=== PATIENT | female | born 1965 | race Caucasian/White ===

== ENCOUNTER 2020-06-11 05:54 | Inpatient (IN) ==
--- NOTE | 2020-05-23 15:33 | PAT Medication Instructions ---
Medication Instructions Date of Service May 23, 2020 Home Medications clonidine HCl 0.3 mg PO BID ibuprofen [Advil] 400 mg PO Q6H PRN lorazepam 1 mg PO HS ASK your surgeon for instructions ibuprofen [Advil] 400 mg PO Q6H PRN Take morning of surgery With a small sip of water, OTHERWISE NOTHING TO EAT OR DRINK AFTER MIDNIGHT: clonidine HCl 0.3 mg PO BID Take evening before surgery clonidine HCl 0.3 mg PO BID lorazepam 1 mg PO HS Other Notes If you have any questions please call us at [phone] or [phone] or [phone] or [phone]
--- NOTE | 2020-05-27 11:02 | Anesthesiology Consultation ---
Date of Service May 27, 2020 Assessment & Plan (1) Encounter for pre-operative examination: *Per PAT assessment on 05/27: Travel screen- Lives/works in [facility]. 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 Per patient, she has been on medical leave since 05/23 and will not be working again until after surgery.* + uses PPE, + social distances, + washes hands frequently. No known COVID-19 positive contacts. No current COVID- 19 related symptoms. Surgeon arranging preop COVID testing. Awaiting results. - Hx PONV: scope patch ordered for AM DOS Chart Review Chart Review: Acceptable Risk for Surgery (pending COVID testing) and Patient seen in Pre Admission Testing Teaching & Discussion Pre-Anesthesia Teaching/Discussion Notes: Instructed NPO after midnight before surgery,except medications with 15 cc of water. Medication instructions provided according to the PAT guidelines. History Surgery Operation Date: 06/11/20 07:45 Proposed Procedures p L3-L5 Decompression and Fusion, Spinal Cord Monitoring - Gregg Polanco DO Height/Weight Height: 5 ft 5 in Weight: 74.8 kg Allergies Allergy/AdvReac Type Severity Reaction Status Date / Time codeine AdvReac Unknown SHOCK Verified 05/20/20 11:20 hydromorphone [From Dilaudid] AdvReac Unknown SHOCK Verified 05/20/20 11:20 Medications Home Medications Medication Instructions Recorded Confirmed Last Taken clonidine HCl 0.3 mg PO BID 05/20/20 05/20/20 Unknown ibuprofen [Advil] 400 mg PO Q6H PRN 05/20/20 05/20/20 Unknown lorazepam 1 mg PO HS 05/20/20 05/20/20 Unknown Past Medical History Medical History Arthritis hip Chronic back pain with LLE/foot radiation Hypertension Exercise / Class Metabolic Activity II 4-5 Yardwork/Stairs/Walk up hill Past Family History Family History Mother Family history of diabetes mellitus Father Family history of diabetes mellitus Past Surgical History Surgical History History of ankle surgery RIGHT/LEFT History of cholecystectomy History of colonoscopy History of discectomy LUMBAR History of esophagogastroduodenoscopy (EGD) History of hysterectomy History of open reduction and internal fixation (ORIF) procedure RIGHT SHOULDER History of toe surgery BONE SPUR EXCISION History of tonsillectomy Past Anesthesia History No Family Hx of Anesthesia Complications and Other ("slow to wake" with multiple surgeries + dyspnea with anesthesia emergence (with toe spur excision)) History of PONV No Hx of Motion Sickness and History of PONV (multiple times, significant improvement when scope patch used) Social History Smoking Status: Current every day smoker Smoking cigarettes per day: 10 CIGS A DAY SINCE AGE 19 Do You Dip or Chew Tobacco: No Hx Alcohol Use: No Hx Substance Use: No Review of Systems Patient denies chest pain, shortness of breath, dyspnea on exertion, reflux, fever, chills, cough, wheezing, palpitations. Physical Exam Vital Signs VITALS BP 155/95 P 93 TEMP 98.1 SP02 94%RA RESP 18 PHYSICAL Full neck and c-spine range of motion. Full TMJ range of motion. TMD 3 finger breaths Mallampati Score 1 Dentition: 3 missing (upper sides/molars) Lungs: clear throughout to auscultation Cardiac: regular rate and rhythm, no murmurs noted Spine: normal Carotid arteries: negative bruit Extremities: no edema Testing Laboratory Results 05/27/20 11:41 05/27/20 11:41 PT 10.3 Seconds (9.0-12.0) 05/27/20 11:41 INR 1.0 (0.9-1.1) 05/27/20 11:41 APTT 27.6 Seconds (21.0-31.0) 05/27/20 11:41 Urine Color Yellow 05/27/20 11:41 Urine Appearance Clear (Clear) 05/27/20 11:41 Urine pH 5.0 (4.5-7.5) 05/27/20 11:41 Ur Specific [place] 1.010 (1.000-1.030) 05/27/20 11:41 Urine Protein Negative (Negative) 05/27/20 11:41 Urine Glucose (UA) Negative (Negative) 05/27/20 11:41 Urine Ketones Negative (Negative) 05/27/20 11:41 Urine Nitrite Negative (Negative) 05/27/20 11:41 Ur Leukocyte Esterase Negative (Negative) 05/27/20 11:41 Blood Type A Negative 05/27/20 11:41 Antibody Screen NEGATIVE 05/27/20 11:41 Electrocardiogram Date: 05/27/20 NSR at 86bpm. FLEX. unconfirmed report* Chest X-Ray Date: 05/27/20 FINDINGS: Lung volumes are normal. Mild linear left basilar opacity favors atelectasis or scarring. There is no pneumothorax or pleural effusion. Cardiac size is normal. Mediastinal contours are normal. There is no evidence for pulmonary edema. Incidental note is made of cholecystectomy clips. IMPRESSION: No acute cardiopulmonary findings.
--- NOTE | 2020-05-27 12:08 | XRay Report ---
XR chest Pre-admission PA/Lat CLINICAL HISTORY: Preoperative evaluation. COMPARISON STUDY: No previous studies for comparison. FINDINGS: Lung volumes are normal. Mild linear left basilar opacity favors atelectasis or scarring. T here is no pneumothorax or pleural effusion. Cardiac size is normal. Mediastinal contours are normal. There is no evidence for pulmonary edema. Incidental note is made of cholecystectomy clips. IMPRESSION: No acute cardiopulmonary findings. ACT 112: Negative or not required by law. Electronically signed by: Darian Monroy M.D. 05/27/2020 12:07 PM
[2020-05-27 12:34] LABS: Basophils # (auto) 0.01 K/uL (0-0.2); Basophils % (auto) 0.2 %; Eosinophils # (auto) 0.04 K/uL (0-0.5); Eosinophils % (auto) 0.6 %; Hematocrit (blood only) 45.1 % (37-47); Hemoglobin 15.4 g/dL (12.0-16.0); Immature Granulocytes # (auto) 0.01 K/uL (0.00-0.02); Immature Granulocytes % (auto) 0.2 %; Lymphocytes # (auto) 2.12 K/uL (1.2-3.4); Lymphocytes % (auto) 33.2 %; Mean Corpuscular Hemoglobin 31.5 pg (25-34); Mean Corpuscular Hgb Conc 34.1 g/dL (32-36); Mean Corpuscular Volume 92.2 fL (80-100); Mean Platelet Volume 9.8 fL (7.4-10.4); Monocytes # (auto) 0.38 K/uL (0.11-0.59); Monocytes % (auto) 5.9 %; Neutrophils # (auto) 3.83 K/uL (1.4-6.5); Neutrophils % (auto) 59.9 %; Platelet Count 221 K/uL (130-400); RDW Coefficient of Variation 13.3 % (11.5-14.5); RDW Standard Deviation 44.8 fL (36.4-46.3); Red Blood Count 4.89 M/uL (4.2-5.4); White Blood Count 6.39 K/uL (4.8-10.8)
[2020-05-27 12:40] LABS: BUN Creatinine Ratio 12.9 (10-20); Calcium 8.6 mg/dl (8.5-10.1); Creatinine Clr Calc Pharmacy 78.5 ml/min; Est GFR (African American) 93.4; Est GFR (Non-African American) 80.6; Potassium 4.1 mmol/L (3.5-5.1)
[2020-05-27 12:44] LABS: Appearance Urine Clear (Clear); Bilirubin Urine Negative (Negative); Blood Urine Negative (Negative); Color Urine Yellow; Glucose Urine UA Negative (Negative); Ketones Urine Negative (Negative); Leukocyte Esterase Urine Negative (Negative); Nitrite Urine Negative (Negative); Protein Urine Negative (Negative); Urobilinogen Urine Negative (Negative)
[2020-05-27 12:52] LABS: Partial Thromboplastin Time 27.6 Seconds (21.0-31.0); Prothrombin Time 10.3 Seconds (9.0-12.0)
--- NOTE | 2020-05-29 00:01 | Electrocardiogram Report ---
Test Reason : Blood Pressure : / mmHG Vent. Rate : 086 BPM Atrial Rate : 086 BPM P-R Int : 176 ms QRS Dur : 086 ms QT Int : 362 ms P-R-T Axes : 082 073 073 degrees QTc Int : 433 ms Normal sinus rhythm Right atrial enlargement Borderline ECG No previous ECGs available Confirmed by Porfirio Wagoner ([id number]) on 05/29/2020 12:00:29 AM Referred By: Gregg Polanco Confirmed By:Porfirio Wagoner
[2020-06-11] MEDS ORDERED: ACETAMINOPHEN 500 MG TAB PO SCH (06:00)
[2020-06-11] MEDS ORDERED: CeleBREX 200 MG CAP PO SCH (06:00)
[2020-06-11] MEDS ORDERED: GABAPENTIN 600 MG DOSE PO SCH (06:00)
[2020-06-11] MEDS ORDERED: LR 500ML BOLUS, THEN 15ML/HR IV SCH (06:00)
[2020-06-11] MEDS ORDERED: CEFAZOLIN 1000MG 1,000 MG/7.5 ML SYR IV SCH (06:00)
[2020-06-11] MEDS ORDERED: BACITRACIN INJ 50,000 UNIT VIAL ONE (07:01)
[2020-06-11] MEDS ORDERED: BUPIVACAINE/EPINEPHRINE 0.25% 1:200,000 30 ML VIAL ONE (07:01)
[2020-06-11] MEDS ORDERED: MIDAZOLAM HCL 1 MG/ML 2ML VIAL ONE (07:05)
[2020-06-11] MEDS ORDERED: fentaNYL citrate 100 MCG/2 ML VIAL ONE ×2 (07:05→08:19)
[2020-06-11] MEDS ORDERED: ePHEDrine sulfate 50 MG/ML AMP IV PRN (07:23)
[2020-06-11] MEDS ORDERED: MoRPHine SULFATE 10 MG/ML CARP/VIAL IV PRN (07:23)
[2020-06-11] MEDS ORDERED: ATROPINE SULFATE 0.1 MG/ML 10ML SYR IV PRN (07:23)
[2020-06-11] MEDS ORDERED: PROMETHAZINE HCL 12.5 MG in SODIUM CHLORIDE 0.9% 50 ML IV PRN ×2 (07:23→11:36)
[2020-06-11] MEDS ORDERED: ONDANSETRON INJ 2 MG/ML 2 ML VIAL IV PRN ×2 (07:23→11:36)
--- NOTE | 2020-06-11 07:36 | History & Physical Bridge Note ---
Date of Service June 11, 2020 History & Physical Bridge Note I have examined the patient, reviewed the History & Physical and in the interval since the performance of the History & Physical I have noted the following changes of clinical significance: no changes noted
--- NOTE | 2020-06-11 07:37 | History & Physical Report ---
Date of Service June 11, 2020 Assessment & Plan (1) Neurogenic claudication due to lumbar spinal stenosis: Admission and Anticipated Discharge Date Admission Date: L3-L5 decompression fusion History of Present Illness Chief Complaint: Back and bilateral leg pain Primary Care Provider: Cb Sheldon MD This is a 54-year-old female with chronic persistent back and leg pain after failing course of nonoperative care is here for surgical intervention. Allergies Allergy/AdvReac Type Severity Reaction Status Date / Time codeine AdvReac Unknown SHOCK Verified 06/11/20 06:28 hydromorphone [From Dilaudid] AdvReac Unknown SHOCK Verified 06/11/20 06:28 Home Medications Home Medications Medication Instructions Recorded Confirmed Type clonidine HCl 0.3 mg PO BID 05/20/20 06/11/20 History ibuprofen [Advil] 400 mg PO Q6H PRN 05/20/20 06/11/20 History lorazepam 1 mg PO HS 05/20/20 06/11/20 History Past Med/Surg History Medical History Arthritis hip Chronic back pain with LLE/foot radiation Hypertension Surgical History History of ankle surgery RIGHT/LEFT History of cholecystectomy History of colonoscopy History of discectomy LUMBAR History of esophagogastroduodenoscopy (EGD) History of hysterectomy History of open reduction and internal fixation (ORIF) procedure RIGHT SHOULDER History of toe surgery BONE SPUR EXCISION History of tonsillectomy Family History Mother Family history of diabetes mellitus Father Family history of diabetes mellitus Social History Smoking Status: Current every day smoker Cigarettes Per Day: 10 CIGS A DAY SINCE AGE 19; Second Hand Exposure: No; Do You Dip or Chew Tobacco: No; Hx Alcohol Use: No Hx Substance Use: No Preferred Language: Senegalese Communication Ability: Effective Restorative Care Technician Required: No Beliefs That Will Affect Care: None Current Living Situation: Spouse Other Information That Helps Us Care for You: No Feels Safe at Home: Yes Safety Concerns: Feels Safe At This Time Physical Exam Physical Exam: Patient is alert and oriented neurologically intact. Heart regular rate and rhythm. Lungs clear to auscultation. Results & Data ([facility]) Vital Signs (Past 12 Hours) Vital Signs Temp Pulse Resp BP Pulse Ox 06/11/20 06:32 36.8 C 79 20 138/91 96
[2020-06-11] MEDS ORDERED: PHENYLEPHRINE 100MCG/ML 5ML SYR ONE (08:30)
[2020-06-11] MEDS ORDERED: ONDANSETRON INJ 2 MG/ML 2 ML VIAL ONE (08:30)
[2020-06-11] MEDS ORDERED: DEXAMETHASONE SOD INJ 4 MG/ML VIAL ONE (08:30)
[2020-06-11] MEDS ORDERED: NEOSTIGMINE METHYLSULFATE 1 MG/ML 10ML VIAL ONE (08:30)
[2020-06-11] MEDS ORDERED: LIDOCAINE HCL 2% 2 ML VIAL/AMP(20MG/ML) INFIL ONE (08:30)
[2020-06-11] MEDS ORDERED: LARYING-O-JET KIT (LTA) ONE (08:30)
[2020-06-11] MEDS ORDERED: PROPOFOL IV EMULSION 10 MG/ML 20 ML VIAL IV ONE (08:30)
[2020-06-11] MEDS ORDERED: ePHEDrine sulfate 50 MG/ML SYR ONE (08:30)
[2020-06-11] MEDS ORDERED: GLYCOPYRROLATE 0.2 MG/ML VIAL ONE (08:30)
[2020-06-11] MEDS ORDERED: ROCURONIUM BROMIDE 10 MG/ML 5 ML VIAL IV ONE (08:30)
[2020-06-11] MEDS ORDERED: FLOSEAL HEMOSTATIC MATRIX 10ML TOP ONE (08:53)
--- NOTE | 2020-06-11 10:01 | Operative Report ---
Post Operative Report Pre & Post Diagnosis Operation Date: 06/11/20 07:45 Pre-Op Diagnosis: Neurogenic claudication due to lumbar spinal stenosis Post-Op Diagnosis: Neurogenic claudication due to lumbar spinal stenosis I identified the patient and participated in the time-out.: Yes Procedure Operation Date: 06/11/20 07:45 Actual Procedures #1 revision decompression with bilateral medial facetectomies and foraminotomies L2-3, L3-4 and L4-5. #2 posterior spinal fusion L3-4 L4-5. #3 placement posterior instrumentation L3-4 L4-5. #4 interbody fusion L3-4 and L4-5. #5 placement of peek cage 12 x 26 mm at L3-4 and 13 x 26 mm L5-S1. #6 placement locally harvested morselized autograft and posterior gutters per #7 placed infuse collagen sponge by mass graft and posterior gutters and ostial interbody space. Surgeon Gregg Polanco, Recreation Therapy Aide Sarah Rodriguez Estimated Blood Loss 100 Findings Consistent with Post-Op Diagnosis Specimens None Indications This is a 54-year-old female presents with significant back and leg pain after failing since course of nonoperative care is here for surgical invention. Description of Procedure Patient was met with preoperatively case discussed all questions addressed with heparin patient was taken back to op suite underwent intubation placed in a prone position the Dick table on top Dominic frame. All bony prominences well-padded eyes inspected to ensure no external pressure placed upon them. This point the lumbar spine was prepped and draped in a sterile fashion. Sharp dissection with the assistance of Bovie cautery was performed down to and exposing the remaining lamina and transverse processes of L3-L4-L5 bilaterally. From a caudal cephalad fashion revision complete laminectomy of L4 L3 and partial laminectomy of L2 was performed including bilateral medial facetectomies and foraminotomies addressing severe spinal stenosis. Pedicle screws were then placed in L3-L4-L5 bilaterally with assistance of fluoroscopy and appropriate size rimma placed. Believe a transforaminal approach on the left knee discectomy of L4-5 was performed endplates curetted to subcortical bleeding bone and a 13 x 26 mm peek cage filled osteo-bone graft tapped in position. Then proceeded to L3-[address] of a transforaminal approach on the left complete discectomy was performed endplates curetted to subcortical any bone and a 12 x 26 mm peek cage filled osteo-bone graft tapped position. The rods were then locked in final position bilaterally. Transverse processes of L3-L4-L5 bur to subcortical bleeding bone. Infuse collagen sponge master graft local autograft was placed in the posterior gutters. 15 round MOHINI drain inserted. The incision was then closed with 1 Vicryl the fascia 2-0 Vicryl subcutaneously and 4 Monocryl for final skin closure. Steri-Strip sterile dressing placed. Patient waken taken PACU stable addition. Please note spinal cord monitoring was utilized that the procedure no changes noted. Lastly Sarah Rodriguez was present at the entire surgery involved the patient positioning complex portions of the surgery and final skin closure. I attest to the content of the Intraoperative Record and any orders documented therein. Any exceptions are noted below.
[2020-06-11] MEDS: fentaNYL citrate 100 MCG/2 ML VIAL IV PRN ×2 (10:35→10:40)
--- NOTE | 2020-06-11 10:42 | Fluoroscopy Report ---
LUMBAR SPINE, INTRAOPERATIVE FLUOROSCOPY HISTORY: L3 L5 decompression and fusion. FLUOROSCOPY TIME: 20 seconds. FINDINGS: Intraoperative fluoroscopy was provided for the lumbar spine. 2 fluoroscopic spot images we re obtained. Posterior decompression fusion from L3 through L5 with pedicle screws and rods. The hard davila appears intact. IMPRESSION: Fluoroscopy provided for a L3-L5 posterior decompression and fusion. ACT 112: Negative or not required by law. Electronically signed by: Arnaldo Garcia M.D. 06/11/2020 10:40 AM
[2020-06-11] MEDS ORDERED: SOD PHOSPHATE/SOD BIPHOSPHATE ENEMA 132 ML BTL PR PRN (11:36)
[2020-06-11] MEDS ORDERED: DO NOT ADMINISTER PNEUMOCOCCAL VACCINE PRN (11:36)
[2020-06-11] MEDS ORDERED: ACETAMINOPHEN 500 MG TAB PO PRN (11:36)
[2020-06-11] MEDS ORDERED: METOCLOPRAMIDE HCL INJ 5 MG/ML 2 ML VIAL IV PRN (11:36)
[2020-06-11] MEDS ORDERED: MoRPHine SULFATE 4 MG/ML 1 ML CARP\\VIAL IV PRN (11:36)
[2020-06-11] MEDS ORDERED: ONDANSETRON 4 MG OD TAB PO PRN (11:36)
[2020-06-11] MEDS ORDERED: FAMOTIDINE 20 MG TAB PO PRN (11:36)
[2020-06-11] MEDS ORDERED: TRAMADOL HCL 50 MG TABLET PO PRN (11:36)
[2020-06-11] MEDS ORDERED: ACETAMINOPHEN 1,000 MG/100 ML VIAL IV PRN (11:36)
[2020-06-11] MEDS ORDERED: LORazepam 0.5 MG/1 ML VIAL IV PRN (11:36)
[2020-06-11] MEDS ORDERED: bisacodyL 10 MG SUPP PR PRN (11:36)
[2020-06-11] MEDS ORDERED: ALUMINUM/MAGNESIUM SUSP 30 ML UDC PO PRN (11:36)
[2020-06-11] MEDS ORDERED: MoRPHine SULFATE 2 MG/ML CARP IV PRN (11:36)
[2020-06-11] MEDS ORDERED: MAGNESIUM HYDROXIDE SUSP 30 ML UDC PO PRN (11:36)
[2020-06-11] MEDS ORDERED: DO NOT ADMINISTER FLU VACCINE PRN (11:36)
[2020-06-11] MEDS ORDERED: NALOXONE HCL 0.4 MG/1 ML VIAL/CARP IV PRN (11:36)
[2020-06-11] MEDS ORDERED: MoRPHine SULFATE 4 MG/ML 1 ML CARP\\VIAL ONE (11:41)
[2020-06-11] MEDS: LACTATED RINGER'S 1,000 ML IV SCH ×2 (11:45→18:05)
--- NOTE | 2020-06-11 12:02 | Anesthesiology Progress Note ---
Date of Service June 11, 2020 Anesthesia Post Procedure Vital Signs Vital Signs: Temp Pulse Pulse Resp BP BP Pulse Ox 06/11/20 11:57 36.4 C L 77 16 147/85 H 96 06/11/20 10:59 36.4 C L 70 14 122/74 94 06/11/20 10:50 36.4 C L 79 14 147/78 H 94 06/11/20 10:40 67 14 147/73 H 94 06/11/20 10:30 83 14 132/75 96 06/11/20 10:20 83 14 133/69 96 06/11/20 10:14 36.1 C L 93 H 14 124/69 98 06/11/20 06:32 36.8 C 79 20 138/91 96 Transfer of Care Handoff Completed per policy Notes Mental Status: alert / awake / arousable and participated in evaluation Patient Amnestic to Procedure: Yes Nausea / Vomiting: adequately controlled Pain: adequately controlled Airway Patency, RR, SpO2: stable & adequate BP & HR: stable & adequate Hydration State: stable & adequate Anesthetic Complications: no major complications apparent and Pt Satisfied with anesthetic care
[2020-06-11] MEDS: KETOROLAC TROMETHAMINE 15 MG/ML VIAL IV SCH ×3 (12:36→23:15)
[2020-06-11] MEDS: HYDROCODONE/ACETAMOPHEN 5/325MG TAB PO PRN (15:28)
[2020-06-11] MEDS: Scopolamine CHECK PATCH PLACEMENT SCH ×2 (16:50→23:19)
[2020-06-11] MEDS: CEFAZOLIN 2000MG 2,000 MG/15 ML SYR IV SCH ×2 (16:50→23:19)
[2020-06-11] MEDS: LORazepam 0.5 MG TAB PO PRN (20:38)
[2020-06-11] MEDS: DOCUSATE SODIUM/SENNA 50/8.6MG TAB PO SCH (20:39)
[2020-06-11] MEDS: cloNIDine HCL 0.3 MG TAB PO SCH (20:39)
[2020-06-12] MEDS: KETOROLAC TROMETHAMINE 15 MG/ML VIAL IV SCH (05:37)
[2020-06-12] MEDS: POLYETHYLENE (MIRALAX) 17 GM PACK PO SCH ×4 (05:38→23:08)
[2020-06-12] MEDS: HYDROCODONE/ACETAMOPHEN 5/325MG TAB PO PRN ×4 (05:43→23:08)
[2020-06-12 05:46] LABS: Basophils # (auto) 0.01 K/uL (0-0.2); Basophils % (auto) 0.1 %; Eosinophils # (auto) 0.02 K/uL (0-0.5); Eosinophils % (auto) 0.2 %; Hematocrit (blood only) 34.8 % (37-47); Hemoglobin 11.1 g/dL (12.0-16.0); Immature Granulocytes # (auto) 0.01 K/uL (0.00-0.02); Immature Granulocytes % (auto) 0.1 %; Lymphocytes # (auto) 1.96 K/uL (1.2-3.4); Mean Corpuscular Hemoglobin 30.6 pg (25-34); Mean Corpuscular Hgb Conc 31.9 g/dL (32-36); Mean Corpuscular Volume 95.9 fL (80-100); Mean Platelet Volume 9.6 fL (7.4-10.4); Monocytes # (auto) 0.79 K/uL (0.11-0.59); Monocytes % (auto) 8.5 %; Neutrophils # (auto) 6.55 K/uL (1.4-6.5); Neutrophils % (auto) 70.1 %; Platelet Count 148 K/uL (130-400); RDW Coefficient of Variation 13.6 % (11.5-14.5); RDW Standard Deviation 47.5 fL (36.4-46.3); Red Blood Count 3.63 M/uL (4.2-5.4); White Blood Count 9.34 K/uL (4.8-10.8)
[2020-06-12 06:24] LABS: BUN Creatinine Ratio 15.7 (10-20); Calcium 8.4 mg/dl (8.5-10.1); Est GFR (Non-African American) 89.7; Potassium 4.4 mmol/L (3.5-5.1)
--- NOTE | 2020-06-12 07:59 | Anesthesiology Progress Note ---
Date of Service June 12, 2020 Anesthesia Post Procedure Vital Signs Vital Signs: Temp Pulse Pulse Pulse Resp BP Pulse Ox 06/12/20 07:40 36.8 C 87 18 91/56 L 96 06/12/20 03:42 36.7 C 56 L 16 94/57 L 98 06/12/20 01:59 36.9 C 70 18 103/63 95 06/11/20 20:37 63 121/73 06/11/20 18:20 36.8 C 75 17 115/69 92 06/11/20 14:30 36.5 C 73 16 108/64 93 06/11/20 13:52 74 16 115/65 93 06/11/20 12:32 79 16 129/74 98 06/11/20 11:57 36.4 C L 77 16 147/85 H 96 06/11/20 11:30 36.6 C 63 16 152/74 H 97 06/11/20 10:59 36.4 C L 70 14 122/74 94 06/11/20 10:50 36.4 C L 79 14 147/78 H 94 06/11/20 10:40 67 14 147/73 H 94 06/11/20 10:30 83 14 132/75 96 06/11/20 10:20 83 14 133/69 96 06/11/20 10:14 36.1 C L 93 H 14 124/69 98 Notes Mental Status: alert / awake / arousable and participated in evaluation Nausea / Vomiting: adequately controlled Pain: adequately controlled Airway Patency, RR, SpO2: stable & adequate BP & HR: stable & adequate Hydration State: stable & adequate Anesthetic Complications: no major complications apparent and Pt Satisfied with anesthetic care
[2020-06-12] MEDS: Scopolamine CHECK PATCH PLACEMENT SCH ×3 (08:38→23:09)
[2020-06-12] MEDS: cloNIDine HCL 0.3 MG TAB PO SCH ×2 (08:42→21:16)
--- NOTE | 2020-06-12 11:00 | Orthopedic Progress Note ---
Date of Service June 12, 2020 Assessment & Plan (1) Neurogenic claudication due to lumbar spinal stenosis: Admission and Anticipated Discharge Date Admission Date: June 11, 2020 At this time continue physical therapy monitor MOHINI output anticipate possible dis charge home tomorrow. Subjective Back pain controlled leg symptoms markedly improved. Physical Exam Physical Exam: Patient is good strength testing appears comfortable. Results & Data ([facility]) Vital Signs (Past 12 Hours) Vital Signs Temp Pulse Resp BP Pulse Ox 06/12/20 08:41 104/66 06/12/20 07:40 36.8 C 87 18 91/56 L 96 06/12/20 03:42 36.7 C 56 L 16 94/57 L 98 06/12/20 01:59 36.9 C 70 18 103/63 95
[2020-06-12] MEDS: DOCUSATE SODIUM/SENNA 50/8.6MG TAB PO SCH (21:18)
[2020-06-12] MEDS: LORazepam 0.5 MG TAB PO PRN (23:09)
[2020-06-13] MEDS: POLYETHYLENE (MIRALAX) 17 GM PACK PO SCH (05:43)
[2020-06-13] MEDS: HYDROCODONE/ACETAMOPHEN 5/325MG TAB PO PRN (05:45)
[2020-06-13] MEDS ORDERED: DEXAMETHASONE SOD PHOSPHATE 8 MG in SYRINGE 0 ML IV SCH (09:00)
[2020-06-13] MEDS: cloNIDine HCL 0.3 MG TAB PO SCH (09:06)
[2020-06-13] MEDS: Scopolamine CHECK PATCH PLACEMENT SCH (09:06)
--- NOTE | 2020-06-13 12:23 | Discharge Summary ---
Date of Service June 13, 2020 Admission HPI Per Admitting Provider This is a 54-year-old female with chronic persistent back and leg pain after failing course of nonoperative care is here for surgical intervention. Principal Diagnosis Lumbar spinal stenosis with radiculopathy Discharge Data Allergies Allergy/AdvReac Type Severity Reaction Status Date / Time codeine AdvReac Unknown SHOCK Verified 06/11/20 06:28 hydromorphone [From Dilaudid] AdvReac Unknown SHOCK Verified 06/11/20 06:28 Consultations 06/11/20 11:36 Consult Case Management - Discharge Planning Routine Procedures Performed Operation Date: 06/11/20 07:45 Actual Procedures p L3-L5 Decompression and Fusion, Spinal Cord Monitoring(Not Applicable) - Gregg Polanco DO Ordered Studies 06/11/20 07:45 FL fluoroscopy <1hr Routine FL lumbar spine 2-3V Routine Hospital Course (1) Neurogenic claudication due to lumbar spinal stenosis: Patient underwent multilevel lumbar decompression fusion tolerated this well was taken to the orthopedic floor postoperative. Postop day 1 she was up and ambulating leg pain improved. She progressed to postop day #2. MOHINI drain decreasing appropriately. Pain well controlled. Subsequently discharged home. Discharge orders and instructions from the chart for further review. Total Time Total Time Spent Total Time Spent (In Minutes): 20 minutes Discharge Plan Discharge Items Patient Disposition: Home - Self-Care Reason For Visit: Spinal Stenosis, Lumbar Region without Neurogenic Discharge Diagnosis: Lumbar spinal stenosis with neurogenic claudication Activity: As commented below Non-emergency contact: Primary Care Provider Call non-emergency contact if: you have any medication questions Follow-up/Referrals: Gregg Polanco DO [Surgeon] - 06/30/20 9:30 am Cb Sheldon MD [Primary Care Provider] - 06/19/20 2:30 pm Diet: Regular Addtl Attending Provider Instructions: ACTIVITY RECOMMENDATIONS: SELF CARE INSTRUCTIONS AFTER THORACIC/LUMBAR FUSIONS 1. You may walk to your tolerance. It is good exercise for your legs and back. Expect some back and intermittent leg aches and pains. 2. You may perform "counter-top" level activities (make a sandwich, yulissa with a project, etc.). 3. No bending or lifting of more than 10 pounds or back twisting of any nature (roll like a log when turning in bed). 4. You may ride in a car for 20-30 minutes at a time. No driving until after your first visit with your doctor. 5. Frequent changes of position and restricting sitting to 30 minutes at a time will help limit the amount of back spasms and stiffness you may experience. 6. You may discontinue the use of ambulatory aids (cane, crutches, etc.) once your strength and confidence allow. 7. You may instrumentation instructor the shower and let water strike your incision when you arrive home at least once daily. Do not take a tub bath, sit in a hot tub or go into a swimming pool until after your first recheck in the office. SPECIAL CARE INSTRUCTIONS: VERY IMPORTANT TO READ AND REVIEW A. Your surgical incision has been closed with a cosmetic suture under the skin that will dissolve in about 6 weeks. In 14 days, you can use a pair of clean scissors and cut the suture that is left outside of the skin at the ends of your incision. 1. The small skin tapes can be removed 7 days after surgery if they have not fallen off by that point. 2. You may keep the wound open to air as much as possible to promote healing after post-op day number 5 unless told otherwise by your doctor. 3. If you think the wound looks like it is becoming infected (redness or worsening drainage) and/or you are experiencing fever, chill or worsening back pain and muscle spasms, contact the office so that we may evaluate you as soon as possible. B. Complications are uncommon, but please contact us if you have any signs or symptoms of: 1. wound infection (fever higher than 102.5 degrees F, redness, separation of wound, drainage, or increasing pain from the incision) 2. blood clots in legs (pain, swelling, redness and warmth in legs) 3. urinary tract infection (fever higher than 102.5 degrees F, burning upon urination or increased frequency of urination) 4. nerve problems (inability to walk on your toes or heels, numbness, loss of bowel or bladder control) 5. any other symptoms that concern you C. Please call the office at if you have any concerns or questions about your operation or recovery. D. No smoking! Smoking drastically decreases the chance of a solid fusion. E. Do not take any anti-inflammatory medications (Indocin, Advil, Motrin, Aspirin, Naprosyn, etc.) as these may inhibit the chance of a solid fusion. Tylenol is okay to take for pain. MANAGING PAIN AFTER SPINAL SURGERY 1. Narcotic medication is intended for short-term use and will be provided for surgical pain. Surgical pain usually lasts for a period of 4-6 weeks. Narcotic medication includes Percocet, Vicodin, Darvocet, Tylenol #3 or Lortab. 2. Longer-term pain is more appropriately treated with non-narcotic medication such as Tylenol ES. 3. Muscle spasm is not appropriately treated with narcotics. Muscle relaxers such as Soma, Flexeril or Skelaxin can be used along with Tylenol ES. 4. Remember that we all live with some "aches and pains". This is not unusual or uncommon after an injury or as we get older. a. Back pain is expected and may include muscle spasms for 4 to 6 weeks after surgery. The pain should gradually improve. If the pain worsens for no apparent reason, please contact the office. b. Intermittent leg pain may also be experienced and should not be concerned about unless it worsens for no apparent reason. If so, please contact the office. 5. We will provide appropriate medication within the normal guidelines of their prescribed use. We will also be very cautious and aware of potential abuse and extended duration of patients' medication needs. a. Pain medications are for your comfort and to assist with sleep and rest so that the tissue can heal. They are not provided in order to return to normal activity and should not be used through the day. To do so or worsening pain at night can result from ongoing tissue damage and development of tolerance to the prescribed medicine. 6. Please allow 2-3 days to process refills. Prescriptions will not be mailed but must be picked up at the office. FOLLOW UP VISIT: Keep your scheduled follow-up appointment. Any questions, please call the office at . Pending Studies at Discharge: No Stand-Alone Forms: [employer], Smoking Cessation Medications and DC Order Prescriptions: New hydrocodone-acetaminophen 5-325 mg tablet See Rx Instructions .ROUTE .COMPLEX PRN (Reason: pain) Qty: 20 RF: 0 tramadol 50 mg tablet 50 mg PO Q6H PRN (Reason: pain, moderate) Qty: 30 RF: 0 Continued clonidine HCl 0.3 mg Tablet 0.3 mg PO BID RF: 0 lorazepam 1 mg Tablet 1 mg PO HS RF: 0 Discontinued ibuprofen [Advil] 200 mg Tablet 400 mg PO Q6H PRN (Reason: Pain) RF: 0 Discharge Orders: Discharge Order (Routine); Ordered 06/13/20 Ordered By: Gregg Polanco Admission Data Admit Date/Time: 06/11/20 10:23 Attending Provider: Gregg Polanco Admit Provider: Gregg Polanco Primary Care Provider: Cb Sheldon Other Interventions: Discharge Summary Assessment (RN) Last Done: 06/13/20 09:55
== END 2020-06-13 10:54 | disposition home or self-care (01) | DRG 455 ==
LOC: ASU 05:54 → 3N 10:23 → 3W 06-12 01:55